=== PATIENT | male | born 1985 | race Caucasian/White ===

== ENCOUNTER 2024-10-14 14:37 | Emergency (ER) | payer OTHER ==
[2024-10-14] MEDS: Diphtheria,Pertussis(Acell),Tetanus Vaccine 0.5 ML Syringe IM ONE (15:09)
[2024-10-14] MEDS: Lidocaine 1% with EPINEPHrine 1:100,000 20 ML MDV INFILT ONE (15:09)
== END 2024-10-14 15:37 | disposition home or self-care (01) ==
LOC: VM.ED 14:37
DX: S81.811A Laceration without foreign body, right lower leg, initial encounter (principal); Z79.899 Other long term (current) drug therapy; Z23 Encounter for immunization; W20.8XXA Other cause of strike by thrown, projected or falling object, initial encounter; Y93.89 Activity, other specified
CPT/HCPCS: 12002; 90471; 90715; 99282-25; 99283; J2004